=== PATIENT | female | born 1955 | race African-American/Black ===

== ENCOUNTER 2017-02-01 16:53 | Emergency (ER) | payer MEDICARE, MEDICAID | END 2017-02-01 18:45 | disposition home or self-care (01) | LOC: D.ER 16:53 | DX: S16.1XXA Strain of muscle, fascia and tendon at neck level, initial encounter (principal); V43.52XA Car driver injured in collision with other type car in traffic accident, initial encounter; Y93.89 Activity, other specified; Y92.410 Unspecified street and highway as the place of occurrence of the external cause; Z85.05 Personal history of malignant neoplasm of liver ==

== ENCOUNTER → 2017-07-17 09:16 | Outpatient (CLI) | payer MEDICARE, MEDICAID ==
--- NOTE | ~2017-07-17 | EC ---
PATIENT:DAVID KELLY DATE OF SERVICE: 07/17/17 SEX: F MEDICAL RECORD: [id number] DATE OF : [birth year] LOCATION:[facility] AGE OF PATIENT: 62 ADMISSION DATE: 07/17/17 REFERRING PHYSICIAN: INTERPRETING PHYSICIAN: TERESA ALDRIDGE MD ECHOCARDIOGRAM REPORT ECHO CHARGES 4 ECHO COMPLETE Date: 07/17 CLINICAL DIAGNOSIS: CP/DYSPNEA ECHOCARDIOGRAPHIC MEASUREMENTS (adult normal given) AC root (d.<3.7cm) 2.3 cm LV Septum d (<1.2 cm> 1.9 cm Valve Excursion 1.7 cm LV Septum (systole) 2.3 cm Left Atria (s.<4.0cm> 2.1 cm LVPW d(<1.2cm) 1.4 cm RV (d.<2.3cm) 2.0 cm LVPW (sytole) 1.9 cm LV diastole(<5.6CM) 2.7 cm MV E-F(>70mm/sec) cm LV systole 0.8 cm LVOT Diameter 1.4 cm MV exc.(>10mm) cm Est.ejection fraction (50-75%) % DOPPLER: LVIT cm/sec A 71.0 cm/sec E 100 cm/sec LA cm/sec RVSP 46.1 mmHg LVOT 100 cm/sec AOP1/2T m/s Asc. Ao 265 cm/sec RVOT 107 cm/sec RA cm/sec PA 118 cm/sec AV Gradient Peak 28.1 mmHg AV Mean 17.0 mmHg AV Area 0.5 cm MV Gradient Peak 5.5 mmHg MV Mean 1.5 mmHg MV Area cm COMMENTS: Cnc Milling Machine Operator: 1 CARRIE [place] Scale Attendant: 4 Dr. Aldridge TAPE# PACS Pericardial Effusion N DATE OF SERVICE: PROCEDURE: Transthoracic echocardiogram. FINDINGS: 1. Left ventricle has moderate concentric left ventricular hypertrophy with preserved LV systolic function. Ejection fraction 60%. 2. The left atrium is normal size, normal function. 3. Aortic valve is normal. 4. The mitral valve is normal. ECHOCARDIOGRAM REPORT [id number] DAVID KELLY 5. Tricuspid valve has moderate tricuspid regurgitation with a peak pressure of approximately 30 to 35 mmHg. 6. The pericardium is normal. 7. The right ventricle is normal size, normal function. 8. The right atrium is normal size, normal function. 9. The pulmonic valve is grossly normal. IMPRESSION: The patient has evidence of left ventricular hypertrophy with normal inflow characteristics, otherwise normal echocardiogram. TRANSINT:[id number] Voice Confirmation ID: [id number] DOCUMENT ID: [id number] TERESA ALDRIDGE MD at 0741 CC: [id number] DICTATION DATE: 07/18/17 0742 DIVERSIONAL THERAPIST'S ASSISTANT: 07/18/17 1152 DEP CLI 07/17/[address] [id number]
== END | disposition home or self-care (01) ==
LOC: D.ECHO 09:16
DX: R07.9 Chest pain, unspecified (principal); I73.9 Peripheral vascular disease, unspecified; R06.02 Shortness of breath; J45.909 Unspecified asthma, uncomplicated

== ENCOUNTER 2018-10-24 13:49 | Emergency (ER) | payer MEDICARE, MEDICAID ==
[~2018-10-24] VITALS: Ht 175.3 cm; Wt 48.2 kg
[2018-10-24 13:52] VITALS: Ht 175.3 cm; Wt 48.2 kg
[2018-10-24 14:13] LABS: BASOPHILS 0.2 % (0-2); EOSINOPHILS 1.5 % (0-7); HEMATOCRIT 39.8 % (36.0-48.0); HEMOGLOBIN 14.2 g/dL (12-16); IMMATURE GRANULOCYTES 0.4 % (0-5); LYMPHOCYTES 23.5 % (15-50); MCH 32.7 pg (26.0-34.0); MCHC 35.7 g/dL (31.0-37.0); MCV 91.7 fL (80.0-100.0); MEAN PLATELET VOLUME 9.8 fL (7.4-10.4); NEUTROPHILS 70.4 % (40-80); PLATELET COUNT 146 10x3/uL (130-400); RBC 4.34 10x6/uL (4.00-5.40); RDW 11.5 % (11.5-14.5); WBC 12.4 10x3/uL (4.8-10.8)
[2018-10-24 14:27] LABS: ALKALINE PHOSPHATASE 92 U/L (46-116); ALT (SGPT) 7 U/L (10-68); BILIRUBIN - TOTAL 0.38 mg/dL (0.2-1.3); CALC OSMOLALITY 282 mosm/kg (275-300); CALCIUM 8.8 mg/dL (8.5-10.1); CARBON DIOXIDE 28.3 mmol/L (21.0-32.0); CHLORIDE - SERUM 102 mmol/L (98-107); CREATININE - SERUM 0.9 mg/dL (0.6-1.3); GLUCOSE 177 mg/dL (74-106); POTASSIUM - SERUM 3.5 mmol/L (3.5-5.1); SODIUM 139 mmol/L (136-145); UREA NITROGEN 15 mg/dL (7-18); eGFR NON AFRICAN AMERICAN 67 mL/min (90-120)
[2018-10-24 14:31] LABS: AMYLASE - SERUM 47 U/L (25-115); LIPASE 152 U/L (73-393)
[2018-10-24 14:32] LABS: TROPONIN-I < 0.017 ng/mL (0.000-0.060)
[2018-10-24 15:55] LABS: APPEARANCE CLEAR (CLEAR); BILIRUBIN NEGATIVE (NEGATIVE); COLOR YELLOW (YELLOW); GLUCOSE NEGATIVE (NEGATIVE); KETONE NEGATIVE (NEGATIVE); NITRITE NEGATIVE (NEGATIVE); PROTEIN NEGATIVE (NEGATIVE); UROBILINOGEN NORMAL (NORMAL)
[2018-10-24 15:56] LABS: BACTERIA FEW /hpf (NONE SEEN); EPITHELIAL CELLS OCC /hpf (0-5); RED CELLS - URINE 0-5 /hpf (0-5); WHITE CELLS - URINE OCC /hpf (0-5)
[2018-10-24] MEDS ORDERED: ZOFRAN ODT4 MG/UDTAB PO (18:10)
[2018-10-24] MEDS ORDERED: HYDROCODON-ACE1 EAC7 PO (18:10)
[2018-10-24 19:00] VITALS: BP 178/68
== END 2018-10-24 18:50 | disposition home or self-care (01) ==
LOC: D.ER 13:49
PROVIDERS: Family Medicine
DX: N13.2 Hydronephrosis with renal and ureteral calculous obstruction (principal)

== ENCOUNTER 2019-04-03 00:08 | Emergency (ER) | payer MEDICARE, MEDICAID ==
[~2019-04-03] VITALS: Ht 175.3 cm; Wt 44.5 kg
[~2019-04-03 00:08] MED LIST: HYDROCODON-ACE1 EAC7 PO; ZOFRAN ODT4 MG/UDTAB PO
[2019-04-03 00:21] VITALS: Ht 175.3 cm; Wt 44.5 kg
[2019-04-03 01:25] LABS: BASOPHILS 0.2 % (0-2); EOSINOPHILS 2.6 % (0-7); HEMATOCRIT 42.3 % (36.0-48.0); HEMOGLOBIN 14.4 g/dL (12-16); IMMATURE GRANULOCYTES 0.2 % (0-5); LYMPHOCYTES 44.5 % (15-50); MCH 32.4 pg (26.0-34.0); MCV 95.3 fL (80.0-100.0); MEAN PLATELET VOLUME 9.5 fL (7.4-10.4); MONOCYTES 9.1 % (2-11); NEUTROPHILS 43.4 % (40-80); PLATELET COUNT 154 10x3/uL (130-400); RBC 4.44 10x6/uL (4.00-5.40); RDW 12.4 % (11.5-14.5); WBC 8.3 10x3/uL (4.8-10.8)
[2019-04-03 01:30] LABS: CALC OSMOLALITY 284 mosm/kg (275-300); CARBON DIOXIDE 30.2 mmol/L (21.0-32.0); CHLORIDE - SERUM 102 mmol/L (98-107); CREATININE - SERUM 0.8 mg/dL (0.6-1.3); POTASSIUM - SERUM 3.5 mmol/L (3.5-5.1); SODIUM 142 mmol/L (136-145); UREA NITROGEN 17 mg/dL (7-18); eGFR NON AFRICAN AMERICAN 76 mL/min (90-120)
[2019-04-03 01:31] LABS: GLUCOSE 101 mg/dL (74-106)
[2019-04-03 01:36] LABS: ALKALINE PHOSPHATASE 91 U/L (46-116); ALT (SGPT) 16 U/L (10-68); BILIRUBIN - TOTAL 0.29 mg/dL (0.2-1.3); PROTEIN - SERUM 8.3 g/dL (6.4-8.2)
[2019-04-03 01:38] LABS: C-REACTIVE PROTEIN < 0.2 mg/dL (0.0-0.9)
[2019-04-03 01:39] LABS: APPEARANCE CLEAR (CLEAR); BILIRUBIN NEGATIVE (NEGATIVE); COLOR YELLOW (YELLOW); GLUCOSE NEGATIVE (NEGATIVE); KETONE NEGATIVE (NEGATIVE); NITRITE NEGATIVE (NEGATIVE); PROTEIN 1+ mg/dL (NEGATIVE); SPECIFIC GRAVITY 1.025 (1.005-1.020); UDS - AMPHET NEGATIVE QUAL (NEGATIVE); UDS - BARB NEGATIVE QUAL (NEGATIVE); UDS - BENZO NEGATIVE QUAL (NEGATIVE); UDS - COCAINE NEGATIVE QUAL (NEGATIVE); UDS - OPIATE NEGATIVE QUAL (NEGATIVE); UDS - PCP NEGATIVE QUAL (NEGATIVE); UDS - THC POSITIVE QUAL (NEGATIVE); UROBILINOGEN NORMAL (NORMAL)
[2019-04-03 01:40] LABS: BACTERIA FEW /hpf (NEGATIVE); EPITHELIAL CELLS 0-5 /hpf (0-5); RED CELLS - URINE 0-5 /hpf (0-5); WHITE CELLS - URINE 0-5 /hpf (NEGATIVE)
[2019-04-03 01:45] VITALS: BP 152/53
[2019-04-04] MEDS ORDERED: NORVASC10 MG PO (02:17)
[2019-04-04] MEDS ORDERED: TENORMIN50 MG PO (02:17)
== END 2019-04-03 01:45 | disposition home or self-care (01) ==
LOC: D.ER 00:08
PROVIDERS: Family Medicine
DX: M25.511 Pain in right shoulder (principal); Z86.73 Personal history of transient ischemic attack (TIA), and cerebral infarction without residual deficits; I10 Essential (primary) hypertension

== ENCOUNTER 2019-04-03 23:57 | Emergency (ER) | payer MEDICARE, MEDICAID ==
[~2019-04-03] VITALS: Ht 175.3 cm; Wt 44.5 kg
[2019-04-04 00:05] VITALS: Ht 175.3 cm; Wt 44.5 kg
[2019-04-04 01:18] LABS: BASOPHILS 0.1 % (0-2); EOSINOPHILS 0.7 % (0-7); HEMATOCRIT 41.8 % (36.0-48.0); HEMOGLOBIN 14.7 g/dL (12-16); IMMATURE GRANULOCYTES 0.3 % (0-5); LYMPHOCYTES 12.4 % (15-50); MCH 32.7 pg (26.0-34.0); MCHC 35.2 g/dL (31.0-37.0); MEAN PLATELET VOLUME 9.5 fL (7.4-10.4); MONOCYTES 5.4 % (2-11); NEUTROPHILS 81.1 % (40-80); PLATELET COUNT 139 10x3/uL (130-400); RBC 4.49 10x6/uL (4.00-5.40)
[2019-04-04 01:19] LABS: MCV 93.1 fL (80.0-100.0); WBC 11.9 10x3/uL (4.8-10.8)
[2019-04-04 01:29] LABS: CALC OSMOLALITY 280 mosm/kg (275-300); CALCIUM 8.4 mg/dL (8.5-10.1); CARBON DIOXIDE 27.7 mmol/L (21.0-32.0); CHLORIDE - SERUM 100 mmol/L (98-107); CREATININE - SERUM 0.6 mg/dL (0.6-1.3); GLUCOSE 182 mg/dL (74-106); POTASSIUM - SERUM 3.7 mmol/L (3.5-5.1); SODIUM 138 mmol/L (136-145); UREA NITROGEN 12 mg/dL (7-18); eGFR NON AFRICAN AMERICAN > 90 mL/min (90-120)
[2019-04-04 01:35] LABS: ALBUMIN 3.9 g/dL (3.4-5.0); ALKALINE PHOSPHATASE 84 U/L (46-116); ALT (SGPT) 15 U/L (10-68); BILIRUBIN - TOTAL 0.48 mg/dL (0.2-1.3); PROTEIN - SERUM 7.9 g/dL (6.4-8.2)
[2019-04-04] MEDS ORDERED: TENORMIN50 MG PO (02:17)
[2019-04-04] MEDS ORDERED: NORVASC10 MG PO (02:17)
[2019-04-04 02:50] VITALS: BP 189/67
== END 2019-04-04 02:51 | disposition home or self-care (01) ==
LOC: D.ER 23:57
PROVIDERS: Emergency Medicine
DX: I16.0 Hypertensive urgency (principal); R51 Headache; R11.2 Nausea with vomiting, unspecified

== ENCOUNTER 2019-10-14 21:49 | Emergency (ER) | payer MEDICARE, MEDICAID ==
[~2019-10-14 21:49] MED LIST changes: +NORVASC10 MG PO; +TENORMIN50 MG PO
[2019-10-14 22:02] VITALS: Ht 175.3 cm
[2019-10-14] MEDS ORDERED: ZOFRAN ODT4 MG/UDTAB PO (22:51)
[2019-10-14 23:06] VITALS: BP 175/63
== END 2019-10-14 23:10 | disposition home or self-care (01) ==
LOC: D.ER 21:49
DX: R11.2 Nausea with vomiting, unspecified (principal); K08.89 Other specified disorders of teeth and supporting structures; Z98.890 Other specified postprocedural states

== ENCOUNTER 2020-09-20 08:35 | Emergency (ER) | payer MEDICARE, MEDICAID ==
[~2020-09-20] VITALS: Ht 175.3 cm; Wt 41.8 kg
[2020-09-20 09:02] VITALS: BP 124/75; Ht 175.3 cm; Wt 41.8 kg
[2020-09-20] MEDS ORDERED: HYDROCODON-ACE1 EA10 PO (10:22)
== END 2020-09-20 10:52 | disposition home or self-care (01) ==
LOC: D.ER 08:35
DX: S82.402A Unspecified fracture of shaft of left fibula, initial encounter for closed fracture (principal); M79.10 Myalgia, unspecified site; T14.8XXA Other injury of unspecified body region, initial encounter; Z86.73 Personal history of transient ischemic attack (TIA), and cerebral infarction without residual deficits; W19.XXXA Unspecified fall, initial encounter; Y93.9 Activity, unspecified; Y92.9 Unspecified place or not applicable